=== PATIENT | female | born 1980 | race Caucasian/White ===

== ENCOUNTER → 2020-10-16 | Outpatient (CLI) | payer OTHER ==
[~2020-10-16] MED LIST: AMLODIPINE BESYL5 MG PO; ASPIRIN EC81 MG PO; ATENOLOL25 MG PO; BUPRENORPHINE-1 EACH SL; DOXYCYCLINE HY100 M2 PO; FOLIC ACID 1 MG1 MG PO; LASIX40 MG PO; LEVOFLOXACIN750 MG PO; LEVOTHYROXINE175 MCG PO; LISINOPRIL20 MG PO; METHOTREXATE25 MG/ML SQ; OMEPRAZOLE40 MG PO; ONDANSETRON ODT8 MG PO; SERTRALINE HCL100 MG PO; VALIUM 10 MG TA10 MG PO; VITAMIN D21250 MCG PO
[2020-10-16 12:59] LABS: HEMOGLOBIN 13.5 gm/dl (12.3-15.3); RED BLOOD COUNT 4.64 M/UL (4.00-5.10); WHITE BLOOD COUNT 7.1 K/UL (4.5-11.0)
[2020-10-16 13:28] LABS: BUN/CREATININE RATIO 17 (0-10)
== END ==
LOC: LAB 12:09
PROVIDERS: Internal Medicine
DX: D89.89 Other specified disorders involving the immune mechanism, not elsewhere classified (principal); M25.50 Pain in unspecified joint; R76.8 Other specified abnormal immunological findings in serum; M06.09 Rheumatoid arthritis without rheumatoid factor, multiple sites; Z92.29 Personal history of other drug therapy; Z79.899 Other long term (current) drug therapy
CPT/HCPCS: 36415; 80053; 83520; 85025; 85652; 86140

== ENCOUNTER 2020-12-16 13:28 | Inpatient (IN) | payer OTHER ==
[~2020-12-16] VITALS: Ht 157.5 cm; Wt 109.8 kg
[2020-12-16 14:08] LABS: HEMOGLOBIN 13.5 gm/dl (12.3-15.3); RED BLOOD COUNT 4.59 M/UL (4.00-5.10); WHITE BLOOD COUNT 7.2 K/UL (4.5-11.0)
[2020-12-16 14:46] LABS: BUN/CREATININE RATIO 12 (0-10)
[2020-12-16] MEDS ORDERED: AMLODIPINE BESYL5 MG PO (20:41)
[2020-12-16] MEDS ORDERED: VALIUM 10 MG TA10 MG PO (20:41)
[2020-12-16] MEDS ORDERED: LEVOTHYROXINE175 MCG PO (20:42)
[2020-12-16] MEDS ORDERED: SERTRALINE HCL100 MG PO (20:43)
[2020-12-16] MEDS ORDERED: OMEPRAZOLE40 MG PO (20:43)
[2020-12-16] MEDS ORDERED: BUPRENORPHINE-1 EACH SL (20:44)
[2020-12-16] MEDS ORDERED: FOLIC ACID 1 MG1 MG PO (20:44)
[2020-12-16] MEDS ORDERED: METHOTREXATE25 MG/ML SQ (20:45)
[2020-12-16] MEDS ORDERED: LISINOPRIL20 MG PO (20:46)
[2020-12-16] MEDS ORDERED: ONDANSETRON ODT8 MG PO (20:48)
[2020-12-16] MEDS ORDERED: ASPIRIN EC81 MG PO (20:48)
[2020-12-16] MEDS ORDERED: ATENOLOL25 MG PO (20:49)
[2020-12-16] MEDS ORDERED: VITAMIN D21250 MCG PO (20:50)
[2020-12-16] MEDS ORDERED: LASIX40 MG PO (20:50)
[2020-12-17 01:06] LABS: BORDETELLA PARAPERTUSSIS Not Detected (Not Detectd); BORDETELLA PERTUSSIS Not Detected (Not Detectd); CHLAMYDIA PNEUMONIAE Not Detected (Not Detectd); CORONAVIRUS HKU1 Not Detected (Not Detectd); CORONAVIRUS NL63 Not Detected (Not Detectd); CORONAVIRUS OC43 Not Detected (Not Detectd); CORONOAVIRUS 229E Not Detected (Not Detectd); HUMAN METAPNEUMOVIRUS Not Detected (Not Detectd); HUMAN RHINOVIRUS/ENTEROVIRUS Not Detected (Not Detectd); INFLUENZA A Not Detected (Not Detectd); INFLUENZA B Not Detected (Not Detectd); MYCOPLASMA PNEUMONIAE Not Detected (Not Detectd); PARAINFLUENZA VIRUS 1 Not Detected (Not Detectd); PARAINFLUENZA VIRUS 2 Not Detected (Not Detectd); PARAINFLUENZA VIRUS 3 Not Detected (Not Detectd); PARAINFLUENZA VIRUS 4 Not Detected (Not Detectd); RESPIRATORY SYNCYTIAL VIRUS Not Detected (Not Detectd)
[2020-12-17 02:02] LABS: SARS-CoV-2 NOT DETECTED (Not Detectd)
[2020-12-17 02:17] LABS: WHITE BLOOD COUNT 6.5 K/UL (4.5-11.0)
[2020-12-17 02:22] LABS: HEMOGLOBIN 11.5 gm/dl (12.3-15.3); RED BLOOD COUNT 4.01 M/UL (4.00-5.10)
[2020-12-17 04:50] LABS: BUN/CREATININE RATIO 13 (0-10)
[2020-12-18 04:33] LABS: HEMOGLOBIN 11.8 gm/dl (12.3-15.3); RED BLOOD COUNT 4.17 M/UL (4.00-5.10)
[2020-12-18 04:38] LABS: WHITE BLOOD COUNT 8.3 K/UL (4.5-11.0)
[2020-12-19 04:22] LABS: HEMOGLOBIN 11.6 gm/dl (12.3-15.3); RED BLOOD COUNT 4.02 M/UL (4.00-5.10); WHITE BLOOD COUNT 7.6 K/UL (4.5-11.0)
[2020-12-19] MEDS ORDERED: DOXYCYCLINE HY100 M2 PO (11:56)
[2020-12-19] MEDS ORDERED: LEVOFLOXACIN750 MG PO (13:12)
== END 2020-12-19 14:30 | disposition home or self-care (01) | DRG 194 ==
LOC: ER1 13:28 → M/S 16:58 → CDU 16:58 → M/S 18:14
PROVIDERS: Internal Medicine Pulmonary Disease; Physician Assistant; Physician Assistant Medical; ADMIT Internal Medicine
PROC: B24BZZ4 Ultrasonography of Heart with Aorta, Transesophageal (ICD-10-PCS; principal; 2020-12-17)
DX: J18.9 Pneumonia, unspecified organism (principal); J90 Pleural effusion, not elsewhere classified; D84.821 Immunodeficiency due to drugs; Z68.41 Body mass index [BMI] 40.0-44.9, adult; M34.9 Systemic sclerosis, unspecified; T45.1X5A Adverse effect of antineoplastic and immunosuppressive drugs, initial encounter; E06.3 Autoimmune thyroiditis; Z20.822 Contact with and (suspected) exposure to COVID-19; E66.01 Morbid (severe) obesity due to excess calories; I07.1 Rheumatic tricuspid insufficiency; I10 Essential (primary) hypertension; G47.33 Obstructive sleep apnea (adult) (pediatric); E03.9 Hypothyroidism, unspecified; Z79.82 Long term (current) use of aspirin; Z90.49 Acquired absence of other specified parts of digestive tract; Z90.710 Acquired absence of both cervix and uterus; Z82.49 Family history of ischemic heart disease and other diseases of the circulatory system; Z83.3 Family history of diabetes mellitus; Z98.51 Tubal ligation status
CPT/HCPCS: ECHO; 36415; 71045; 71046; 78452; 80048; 80053; 80061; 80202; 80307; 82550; 82553; 83605; 83735; 83874; 84484; 84703; 85025; 85027; 85379; 85652; 86140; 87040; 87633; 93005; 93017; 93306; 96372; 96374; 96375; 96376; 99285; A9502; G0378; J1650; J2405; J2543; J2785; J3370; J7030; J7060; J7070; Q9967; U0002

== ENCOUNTER 2020-12-29 17:11 | Emergency (ER) | payer OTHER ==
[2020-12-29 19:13] LABS: HEMOGLOBIN 13.8 gm/dl (12.3-15.3); RED BLOOD COUNT 4.72 M/UL (4.00-5.10); WHITE BLOOD COUNT 7.2 K/UL (4.5-11.0)
== END 2020-12-29 21:35 | disposition home or self-care (01) ==
LOC: ER1 17:11
PROVIDERS: Physician Assistant Medical
DX: J18.9 Pneumonia, unspecified organism (principal); I10 Essential (primary) hypertension; F17.210 Nicotine dependence, cigarettes, uncomplicated
CPT/HCPCS: 80053; 82550; 82553; 83605; 83874; 84484; 85025; 87040; 93005; 94664; 94760; 99285; J7030; Q9967

== ENCOUNTER → 2021-01-03 | Outpatient (CLI) | payer OTHER | LOC: HEART 5 13:19 | DX: R76.8 Other specified abnormal immunological findings in serum (principal); R06.00 Dyspnea, unspecified | CPT/HCPCS: 94010 ==